=== PATIENT | female | born 1965 | race Caucasian/White ===

== ENCOUNTER 2017-03-08 14:06 | Emergency (ER) | payer OTHER ==
[~2017-03-08] VITALS: Ht 177.8 cm; Wt 68.0 kg
--- NOTE | 2017-03-08 14:15 | NUR ---
MSE DONE BY DR HAGAN AT BEDSIDE.
[2017-03-08] MEDS ORDERED: methylPREDNISolone SOD SUCC 40 MG/ML VIAL IM ONE (14:30)
[2017-03-08] MEDS ORDERED: diphenhydrAMINE 50 MG/1 ML VIAL IM ONE (14:30)
[2017-03-08] MEDS ORDERED: methylPREDNISolone SOD SUCC 125 MG/2 ML VIAL ONE (14:39)
[2017-03-08] MEDS ORDERED: diphenhydrAMINE 50 MG/1 ML VIAL ONE (14:39)
--- NOTE | 2017-03-08 14:44 | NUR ---
Patient discharged to home in stable conditon. Written and verbal after care instructions given. Patient verbalizes understanding of instructions. No SOB, No CP.
== END 2017-03-08 14:56 | disposition home or self-care (01) ==
LOC: ER 14:06
DX: T78.40XA Allergy, unspecified, initial encounter (principal); I10 Essential (primary) hypertension; X58.XXXA Exposure to other specified factors, initial encounter
CPT/HCPCS: A4663; J1200; J2930

== ENCOUNTER 2017-06-06 19:57 | Emergency (ER) | payer OTHER ==
[~2017-06-06] VITALS: Ht 172.7 cm; Wt 68.0 kg
--- NOTE | 2017-06-06 20:53 | NUR ---
Patient discharged to home in stable conditon. Written and verbal after care instructions given. Patient verbalizes understanding of instructions.
== END 2017-06-06 20:54 | disposition home or self-care (01) ==
LOC: ER 19:58
DX: L29.9 Pruritus, unspecified (principal); I10 Essential (primary) hypertension
CPT/HCPCS: A4663; J2930